=== PATIENT | male | born 1995 | race Caucasian/White ===

== ENCOUNTER 2018-05-16 09:13 | Emergency (ER) | payer OTHER ==
[2018-05-16 09:44] VITALS: BP 145/97
[2018-05-16 10:03] LABS: Influenza A Molecular POSITIVE (Negative)
--- NOTE | 2018-05-16 10:05 | UC ---
FLU HPI - HPI Summary HPI Summary: 2-3 day history of malaise, myalgias, fever, headache and cough, with some vomiting a loose stools. Poor sleep, maintaining hydration. - History of Current Complaint Chief Complaint: UCRespiratory Stated Complaint: FEVER, ACHY BODY Time Seen by Provider: 05/16/18 09:56 Hx Obtained From: Patient Onset/Duration: Gradual Onset, Lasting Days - 2-3 Severity Currently: Mild Severity Initially: Mild Pain Intensity: 4 Associated Signs & Symptoms: Positive: Fever, Myalgia, Nasal Congestion Related Hx: Possible Flu/Infectious Exposure - Risk Factors Influenza Risk Factors: Negative - Allergy/Home Medications Allergies/Adverse Reactions: Allergies Allergy/AdvReac Type Severity Reaction Status Date / Time Penicillins AdvReac See Comment Verified 05/16/18 09:40 Home Medications: Home Medications Dm/PE/Acetaminophen/Doxylamine [Vicks Dayquil/Nyquil Cold] 30 ml PO Q6H PRN [History Confirmed 05/16/18] PMH/Surg Hx/FS Hx/Imm Hx Previously Healthy: Yes - Surgical History Surgical History: Yes Surgery Procedure, Year, and Place: Pilonidal Cystectomy, 2018; Adnoidectomy, ~ 2012 ~2001 - Family History Known Family History: Positive: Non-Contributory - Social History Occupation: Student Lives: Dormitory/Roommates Alcohol Use: Occasionally Substance Use Type: Marijuana Smoking Status (MU): Current Some Day Smoker Review of Systems All Other Systems Reviewed And Are Negative: Yes Constitutional: Positive: Fever, Fatigue Skin: Positive: Negative Eyes: Positive: Negative ENT: Positive: Nasal Discharge Respiratory: Positive: Cough Cardiovascular: Positive: Negative Gastrointestinal: Positive: Diarrhea - not severe, stools are loose. Genitourinary: Positive: Negative Motor: Positive: Negative Neurovascular: Positive: Negative Musculoskeletal: Positive: Negative Neurological: Positive: Negative Psychological: Positive: Negative Is Patient Immunocompromised?: No Physical Exam Triage Information Reviewed: Yes Appearance: Ill-Appearing, Obese - looks mildly unwell Vital Signs: Initial Vital Signs Temp 98.9 F 05/16/18 09:37 Pulse 96 05/16/18 09:37 Resp 18 05/16/18 09:37 BP 145/97 05/16/18 09:37 Pulse Ox 99 05/16/18 09:37 Eyes: Positive: Conjunctiva Clear ENT: Positive: Pharynx normal Neck: Positive: Supple, Nontender, No Lymphadenopathy Respiratory: Positive: Lungs clear, Normal breath sounds Cardiovascular: Positive: RRR, No Murmur Abdomen Description: Positive: Nontender, No Organomegaly, Soft Musculoskeletal Exam: Normal Neurological Exam: Normal Psychological Exam: Normal Skin Exam: Normal Diagnostics - Laboratory Diagnostic Studies Completed/Ordered: flu A positive Flu Course/Dx - Course Course Of Treatment: tamiflu for influenza A - Differential Dx/Diagnosis Differential Diagnosis/HQI/PQRI: Influenza, Upper Respiratory Infection Provider Diagnosis: Influenza A Discharge - Sign-Out/Discharge Documenting (check all that apply): Patient Departure All imaging exams completed and their final reports reviewed: No Studies - Discharge Plan Condition: Stable Disposition: HOME Prescriptions: Oseltamivir CAP* [Tamiflu CAP*] 75 mg PO BID #10 cap Patient Education Materials: Influenza (ED) Print Language: BOT[place] Referrals: No Primary Care Phys,NOPCP [Primary Care Provider] - Additional Instructions: You have a prescription for Tamilfu which will give some relief of your symptoms. Ibuprofen 600 to 800mg might be more helpful for muscle ache and headache than what you have been using. Ensure a high intake of fluids and rest, with follow up evaluation if fever persists beyond next Friday, or if you develop shortness of breath or chest pain. - Billing Disposition and Condition Condition: STABLE Disposition: Home
== END 2018-05-16 10:20 | disposition home or self-care (01) ==
LOC: UCCORT 09:13
DX: J10.1 Influenza due to other identified influenza virus with other respiratory manifestations (principal); E66.9 Obesity, unspecified; F17.200 Nicotine dependence, unspecified, uncomplicated; Z88.0 Allergy status to penicillin
CPT/HCPCS: 99202; G0463